=== PATIENT | male | born 1990 | race Caucasian/White ===

== ENCOUNTER → 2024-10-18 | Outpatient (CLI) | payer OTHER ==
[~2024-10-18] MED LIST: PROHANCE 279.3MG/ML 15ML VIAL ONE; PROHANCE 279.3MG/ML 5ML VIAL ONE
== END ==
LOC: M PLAIMG 07:19
PROVIDERS: ATTEND Orthopaedic Surgery Hand Surgery
DX: R22.31 Localized swelling, mass and lump, right upper limb (principal); S63.591A Other specified sprain of right wrist, initial encounter; X58.XXXA Exposure to other specified factors, initial encounter; Y92.9 Unspecified place or not applicable; Y93.9 Activity, unspecified; Y99.9 Unspecified external cause status
CPT/HCPCS: 73223; A9576